=== PATIENT | male | born 1975 | race Caucasian/White ===

== ENCOUNTER 2017-04-05 14:40 | Emergency (ER) | payer OTHER ==
--- NOTE | 2017-04-05 15:08 | ED ---
Psych HPI - General Chief Complaint: Psychiatric Symptoms Stated Complaint: Mental Health Time Seen by Provider: 04/05/17 14:53 Source: patient, RN notes reviewed Mode of arrival: ambulatory - History of Present Illness Initial Comments: This is a 41-year-old male with a history depression who was brought in by police under petition for making suicidal threats. He states he got an argument with his parents this morning told his mother that he he wanted to hang himself that escalated after police arrived and he said I might as well kill myself though he didn't have any particular plan. He states this was a mistake and that he really doesn't want hurt himself but he is under petition at this time. He has a history of depression and prior admissions for inpatient treatment of the same. He is a recovered alcoholic he states he does not use alcohol now he does smoke cigarettes he denies any street drugs. MD Complaint: suicidal ideation, feels depressed - Related Data Home Medications Medication Instructions Recorded Confirmed Gabapentin [Gabapentin] 300 mg PO TID 06/21/16 04/05/17 Benztropine Mesylate [Cogentin] 2 mg PO TID 04/05/17 04/05/17 DULoxetine HCL [Cymbalta] 60 mg PO BID 04/05/17 04/05/17 diphenhydrAMINE [Benadryl] 50 mg PO HS 04/05/17 04/05/17 fluPHENAZine DECANOATE [Prolixin 25 mg IM FR 04/05/17 04/05/17 Decanoate] Allergies Allergy/AdvReac Type Severity Reaction Status Date / Time amoxicillin [Amoxicillin] Allergy Unknown Verified 04/05/17 14:54 cefdinir [From Omnicef] Allergy Unknown Verified 04/05/17 14:54 Iodine and Iodide Containing Allergy Unknown Verified 04/05/17 14:54 Produc propoxyphene napsylate Allergy Unknown Verified 04/05/17 14:54 [From Darvocet-N 100] Review of Systems ROS Statement: Those systems with pertinent positive or pertinent negative responses have been documented in the HPI. ROS Other: All systems not noted in ROS Statement are negative. Past Medical History Past Medical History: Fibromyalgia, Seizure Disorder Additional Past Medical History / Comment(s): closed head injury, degenerative disc disease History of Any Multi-Drug Resistant Organisms: MRSA Date of last positivie culture/infection: 07/27/2014 MDRO Source:: Left Hand Past Surgical History: Hernia Repair, Orthopedic Surgery Past Psychological History: ADD/ADHD, Anxiety, Bipolar, Depression, Panic Disorder, Schizophrenia Smoking Status: Current every day smoker Past Alcohol Use History: Occasional Past Drug Use History: None Reported General Exam - General Exam Comments Initial Comments: This is a well-developed well-nourished awake alert oriented 3 male Limitations: no limitations General appearance: alert, in no apparent distress Head exam: Present: atraumatic, normocephalic, normal inspection Eye exam: Present: normal appearance, PERRL, EOMI. Absent: scleral icterus, conjunctival injection, periorbital swelling ENT exam: Present: normal exam, mucous membranes moist Neck exam: Present: normal inspection. Absent: tenderness, meningismus, lymphadenopathy Respiratory exam: Present: normal lung sounds bilaterally. Absent: respiratory distress, wheezes, rales, rhonchi, stridor Cardiovascular Exam: Present: regular rate, normal rhythm, normal heart sounds. Absent: systolic murmur, diastolic murmur, rubs, gallop, clicks GI/Abdominal exam: Present: soft, normal bowel sounds. Absent: distended, tenderness, guarding, rebound, rigid Extremities exam: Present: normal inspection, full ROM, normal capillary refill. Absent: tenderness, pedal edema, joint swelling, calf tenderness Back exam: Present: normal inspection Neurological exam: Present: alert, oriented X3, CN II-XII intact Psychiatric exam: Present: depressed, flat affect Skin exam: Present: warm, dry, intact, normal color. Absent: rash Course Vital Signs 04/05/17 04/05/17 14:47 19:18 Temperature 98.2 F 97.9 F Pulse Rate 91 67 Respiratory 18 16 Rate Blood Pressure 138/74 117/76 O2 Sat by Pulse 99 99 Oximetry Medical Decision Making - Medical Decision Making The patient was evaluated by [facility] service he is not a threat to himself or a loss he denies any thoughts of suicide I did fill out a negative clinical certification. I did review the petition. - Lab Data Lab Results 04/05/17 Range/Units 16:24 Urine Opiates Screen Not Detected (NotDetected) Ur Oxycodone Screen Not Detected (NotDetected) Urine Methadone Screen Not Detected (NotDetected) Ur Propoxyphene Screen Not Detected (NotDetected) Ur Barbiturates Screen Not Detected (NotDetected) U Tricyclic Antidepress Not Detected (NotDetected) Ur Phencyclidine Scrn Not Detected (NotDetected) Ur Amphetamines Screen Not Detected (NotDetected) U Methamphetamines Scrn Not Detected (NotDetected) U Benzodiazepines Scrn Not Detected (NotDetected) Urine Cocaine Screen Not Detected (NotDetected) U Marijuana (THC) Screen Detected H (NotDetected) Disposition Clinical Impression: Adjustment reaction, Depression Disposition: HOME SELF-CARE Condition: Good Instructions: Depression (ED), Suicide Prevention for Adults (ED), Anxiety (ED)
[2017-04-05 19:19] VITALS: BP 117/76; PULSE 67; RESP 16; TEMP 97.9
== END 2017-04-05 19:35 | disposition home or self-care (01) ==
LOC: EC 14:40 → SUPCPDRO 14:40 → EC 19:35
DX: F43.20 Adjustment disorder, unspecified (principal); F32.9 Major depressive disorder, single episode, unspecified; G40.909 Epilepsy, unspecified, not intractable, without status epilepticus; F20.9 Schizophrenia, unspecified; F41.9 Anxiety disorder, unspecified; F90.9 Attention-deficit hyperactivity disorder, unspecified type; F41.0 Panic disorder [episodic paroxysmal anxiety]; F17.200 Nicotine dependence, unspecified, uncomplicated; Z79.899 Other long term (current) drug therapy; Z88.0 Allergy status to penicillin; Z88.5 Allergy status to narcotic agent; Z88.8 Allergy status to other drugs, medicaments and biological substances
CPT/HCPCS: 80306; 82075; 99284

== ENCOUNTER 2017-04-16 18:42 | Inpatient (IN) | payer MEDICAID, OTHER ==
--- NOTE | 2017-04-16 19:40 | ED ---
Psych HPI - General Chief Complaint: Psychiatric Symptoms Stated Complaint: Mental health Time Seen by Provider: 04/16/17 19:19 Source: patient, RN notes reviewed Mode of arrival: ambulatory Limitations: no limitations - History of Present Illness Initial Comments: 41-year-old male presents emergency Department with chief complaint of depression, suicidal thoughts. Patient states his ongoing suicidal thoughts has been evaluated for this. Patient was switched to Zyprexa and Prozac. Patient states he was on Cogentin and other medications. Patient states she's having having crying spells that aren't controlled. Patient has no exact plan to hurt himself. Denies any homicidal thoughts. Denies any drug abuse any alcohol abuse. Patient has no physical complaints. Patient is here with family. - Related Data Home Medications Medication Instructions Recorded Confirmed FLUoxetine HCL [PROzac] 10 mg PO DAILY 04/16/17 04/16/17 OLANZapine [ZyPREXA] 5 mg PO HS 04/16/17 04/16/17 Allergies Allergy/AdvReac Type Severity Reaction Status Date / Time cefdinir [From Omnicef] Allergy Unknown Verified 04/16/17 19:46 Iodine and Iodide Containing Allergy Unknown Verified 04/16/17 19:46 Produc Penicillins Allergy Unknown Verified 04/16/17 19:53 propoxyphene napsylate Allergy Unknown Verified 04/16/17 19:46 [From Darvocet-N 100] Review of Systems ROS Statement: Those systems with pertinent positive or pertinent negative responses have been documented in the HPI. ROS Other: All systems not noted in ROS Statement are negative. Past Medical History Past Medical History: Fibromyalgia, Seizure Disorder Additional Past Medical History / Comment(s): closed head injury, degenerative disc disease History of Any Multi-Drug Resistant Organisms: MRSA Date of last positivie culture/infection: 07/27/2014 MDRO Source:: Left Hand Past Surgical History: Hernia Repair, Orthopedic Surgery Past Psychological History: ADD/ADHD, Anxiety, Bipolar, Depression, Panic Disorder, Schizophrenia Smoking Status: Current some day smoker Past Alcohol Use History: Occasional Past Drug Use History: None Reported General Exam Limitations: no limitations General appearance: alert, in no apparent distress Head exam: Present: atraumatic, normocephalic, normal inspection ENT exam: Present: normal exam, normal oropharynx, mucous membranes moist Neck exam: Present: normal inspection. Absent: tenderness, meningismus, lymphadenopathy Respiratory exam: Present: normal lung sounds bilaterally. Absent: respiratory distress, wheezes, rales, rhonchi, stridor Cardiovascular Exam: Present: regular rate, normal rhythm, normal heart sounds. Absent: systolic murmur, diastolic murmur, rubs, gallop, clicks Neurological exam: Present: alert, oriented X3 Psychiatric exam: Present: flat affect Skin exam: Present: warm, dry, intact, normal color. Absent: rash Course Vital Signs 04/16/17 18:57 Temperature 99.0 F Pulse Rate 92 Respiratory 18 Rate Blood Pressure 123/82 O2 Sat by Pulse 94 L Oximetry Medical Decision Making - Lab Data Lab Results 04/16/17 Range/Units 19:26 Urine Opiates Screen Not Detected (NotDetected) Ur Oxycodone Screen Not Detected (NotDetected) Urine Methadone Screen Not Detected (NotDetected) Ur Propoxyphene Screen Not Detected (NotDetected) Ur Barbiturates Screen Not Detected (NotDetected) U Tricyclic Antidepress Not Detected (NotDetected) Ur Phencyclidine Scrn Not Detected (NotDetected) Ur Amphetamines Screen Not Detected (NotDetected) U Methamphetamines Scrn Not Detected (NotDetected) U Benzodiazepines Scrn Not Detected (NotDetected) Urine Cocaine Screen Not Detected (NotDetected) U Marijuana (THC) Screen Detected H (NotDetected) Disposition Clinical Impression: Suicidal ideation, Depression Disposition: ADMITTED IP TO THIS [facility] Condition: Stable Referrals: Sonu Grubbs MD [Primary Care Provider] - 1-2 days
[2017-04-16] MEDS ORDERED: MAGNESIUM HYDROXIDE 2,400 MG/10 ML CUP PO PRN (22:59)
[2017-04-16] MEDS ORDERED: MAG HYDROX/AL HYDROX/SIMETH 30 ML CUP PO PRN (22:59)
[2017-04-16] MEDS ORDERED: ACETAMINOPHEN TAB 325 MG TAB PO PRN (22:59)
[2017-04-16] MEDS ORDERED: ZIPRASIDONE 20 MG VIAL IM PRN (22:59)
[2017-04-16] MEDS: LORazepam 1 MG TAB PO PRN (23:37)
[2017-04-16] MEDS: OLANZapine 5 MG TAB PO SCH (23:37)
[2017-04-17 00:30] VITALS: BMI 20.7
[2017-04-17 09:23] LABS: Basophils # (A) 0.1 k/uL (0-0.2); Basophils % (A) 1 %; CH 32.7; CHCM 34.9; Eosinophils # (A) 0.2 k/uL (0-0.7); Eosinophils % (A) 2 %; HCT 51.7 % (39.0-53.0); HDW 2.37; HGB 17.3 gm/dL (13.0-17.5); Luc # (Auto) 0.16; Luc % (Auto) 2; Lymphocytes # (A) 2.3 k/uL (1.0-4.8); Lymphocytes % (A) 34 %; MCH 31.5 pg (25.0-35.0); MCHC 33.4 g/dL (31.0-37.0); MCV 94.1 fL (80.0-100.0); Mean Platelet Volume 7.8; Monocytes # (A) 0.3 k/uL (0-1.0); Monocytes % (A) 5 %; Neutrophils # (A) 3.8 k/uL (1.3-7.7); Neutrophils % (A) 56 %; WBC 6.8 k/uL (3.8-10.6); WBC (Perox) 6.76
[2017-04-17 09:36] LABS: ALT 28 U/L (21-72); AST 32 U/L (17-59); Alkaline Phosphatase 62 U/L (38-126); Anion Gap 13 mmol/L; Blood Urea Nitrogen 23 mg/dL (9-20); Calcium 9.7 mg/dL (8.4-10.2); Carbon Dioxide 25 mmol/L (22-30); Chloride 102 mmol/L (98-107); Glucose 141 mg/dL (74-99); Non-African American GFR(MDRD) >60 (>60 ml/min/1.73 sqM); Sodium 140 mmol/L (137-145)
[2017-04-17 09:41] LABS: Appearance,Urine Clear (Clear); Bilirubin,Urine Negative (Negative); Glucose,Urine (UA) Negative (Negative); Ketones,Urine Negative (Negative); Leukocyte Esterase,Urine Negative (Negative); Nitrite,Urine Negative (Negative); Protein,Urine Negative (Negative); Specific Gravity,Urine 1.016 (1.001-1.035); UA Billing (MACRO vs. MICRO) CHEM; Urobilinogen,Urine <2.0 mg/dL (<2.0)
[2017-04-17] MEDS: FLUoxetine HCL 10 MG CAP PO SCH (09:44)
[2017-04-17] MEDS: LORazepam 1 MG TAB PO PRN ×2 (09:45→20:58)
[2017-04-17 10:07] LABS: Potassium 4.9 mmol/L (3.5-5.1)
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
[2017-04-17] MEDS: OLANZapine 5 MG TAB PO SCH (20:58)
--- NOTE | 2017-04-18 05:23 | CONS ---
DATE OF CONSULTATION: CHIEF COMPLAINT: Major depression with suicidal thoughts. HISTORY OF PRESENT ILLNESS: This is another admission for this 41-year-old white male. He became extremely depressed and had been thinking about killing himself and he had actually had a plan to hang himself. REVIEW OF SYSTEMS: He has had no headaches, change in vision or the hearing, chest pain, cough, hemoptysis, abdominal pain, renal disease, etc. Past medical history, family history and personal and social histories reveal that he has been on Cymbalta 60 mg once a day, Fiorinal, Vicodin 5 q.4 p.r.n., Neurontin 400 mg once a day. The remainder of his history is unremarkable and can be found in his admitting summary. PHYSICAL EXAMINATION: Blood pressure is 128/74 with a pulse of 86, respirations 19. He is afebrile. GENERAL: He appeared to be well developed, well nourished and in no acute distress. Skin color is normal. Skin is warm and dry. Lymph nodes are not enlarged. Head, ears, eyes, nose, mouth, and throat were normal. Neck veins not distended. Chest is clear. Cardiac exam is normal. ABDOMEN: Soft, nontender. EXTREMITIES: Normal. NEUROLOGICAL: He is intact. IMPRESSION: Major depression with suicidal thought. RECOMMENDATION: None at this time.
[2017-04-18] MEDS: FLUoxetine HCL 10 MG CAP PO SCH (10:21)
--- NOTE | 2017-04-18 13:05 | P.PN ---
Progress Note - Text INTERVERAL HISTORY:Patient playing cards with another patient greeted consumer loan underwriter pleasantly and cooperatively. Came to office. Reports "maybe I didn't really need to come here, I feel better already"' Patient reports that he slept well last night, and it is feeling better today. Treatment team meeting focused on possibility that his precipitating factor was related to having to register due to CSC. Patient had mentioned that he could live with his parents as long as he behaved , he did not report that he had any behavior that would've gotten him in trouble. Reviewed with [facility] his recent medication changes. And he was taking fluphenazine IM and Cogentin, both of those were discontinued on Monday. MENTAL STATUS EXAM:Patient alert and oriented 3, good eye contact, fair groomed in street clothing. Speech normal volume, rate and production. Coherent, logical and goal directed thought process. No MICAELA, no FOI. [No TB/TW/ TI] Denied auditory and visual hallucinations. Denied paranoid ideation, delusions or IOR. Memory [fair] Cognition below average Mood neutral to euthymic, affect full range decreased intensity, congruent with mood. Denies suicidal ideation, denies homicidal ideation. Insight partial; Judgement grossly intact for treatment purposes PLAN: Continue inpatient admission for safety purposes. Will schedule family meeting prior to discharge. Continue zyprexa and prozac.
[2017-04-18] MEDS: OLANZapine 5 MG TAB PO SCH (20:42)
[2017-04-18] MEDS: LORazepam 1 MG TAB PO PRN (20:42)
[2017-04-19 06:46] VITALS: BP 96/61; PULSE 80; RESP 18; TEMP 97.7
[2017-04-19] MEDS: FLUoxetine HCL 10 MG CAP PO SCH (08:45)
--- NOTE | 2017-04-19 10:15 | P.DS ---
Providers Date of admission: 04/16/17 21:29 Expected date of discharge: 04/19/17 Attending physician: Vivien Bo MD Consults: 04/16/17 22:59 Consult Physician Routine Consulting Provider: Sonu Grubbs Consult Reason/Comments: H & P and medical follow up Do you want consulting provider notified?: Yes, Notify in am Primary care physician: Sonu Grubbs Hospital Course: Patient came to ER reporting suicidal ideation. He had just seen his outpatient psychiatrist but did not report his SI to him, stating "it was none of his business" Patient reported stress causing him to be suicidal, reporting he had attempted to hang himself 3 weeks prior to this admission. He was vague and unwilling to describe what the stressors were but during hospitalization he opened up and stated "if I the littlest thing I could be sent to long term" Patient eventually reported he has been taken to [facility] for not registering his address due to [facility] and the next time he would be taken to long term. He reports that his parents are willing to take him today to register so that he is in compliance with the law. Patient also reports his medication changes seem to be better. His last visit on Monday of last week, prolixin IM and cogentin were discontinued He is now taking prozac and zyprexa. Patient alert and oriented 3, good eye contact, fair groomed in hospital attire. Speech normal volume, rate and production. Coherent, logical and goal directed thought process. No MICAELA, no FOI. [No TB/TW/ TI] Denied auditory and visual hallucinations. Denied paranoid ideation, delusions or IOR. Memory [intact] Cognition[average] Mood euthymic, affect range, congruent with mood. Denies suicidal ideation, denies homicidal ideation. Insight partial; Judgment is intact for treatment purposes Suicidal ideation, with plan resolved Bipolar II Antisocial Personality Disorder Cannabis use, mild History of Head Trauma Pertinent Studies: none Procedures: none Patient Condition at Discharge: Stable Plan - Discharge Summary New Discharge Prescriptions: FLUoxetine HCL [PROzac] 10 mg PO DAILY #7 OLANZapine [ZyPREXA] 5 mg PO HS #7 Discharge Medication List FLUoxetine HCL [PROzac] 10 mg PO DAILY #7 04/19/17 [Rx] OLANZapine [ZyPREXA] 5 mg PO HS #7 04/19/17 [Rx] Follow up Appointment(s)/Referral(s): [facility] [Outside] - 04/20/17 (04/20/17 at 8:30 am w/ Peg Washington 05/02/17 at 4:40 pm w/ Dr. Jackson) Sonu Grubbs MD [Primary Care Provider] - 1-2 days Discharge Disposition: HOME SELF-CARE
== END 2017-04-19 12:05 | disposition home or self-care (01) | DRG 885 ==
LOC: EC 18:42 → 3MHU 21:29
PROVIDERS: ADMIT Psychiatry & Neurology Addiction Medicine; ATTEND Psychiatry & Neurology Addiction Medicine
DX: F31.81 Bipolar II disorder (principal); R45.851 Suicidal ideations; F41.0 Panic disorder [episodic paroxysmal anxiety]; F17.200 Nicotine dependence, unspecified, uncomplicated; F12.90 Cannabis use, unspecified, uncomplicated; F60.2 Antisocial personality disorder; F90.9 Attention-deficit hyperactivity disorder, unspecified type; Z87.820 Personal history of traumatic brain injury; M79.7 Fibromyalgia; Z59.0 Homelessness; Z79.899 Other long term (current) drug therapy; Z91.5 Personal history of self-harm
CPT/HCPCS: 80053; 80306; 81003; 84443; 85025; 99285

== ENCOUNTER → 2019-09-27 | Outpatient (CLI) | payer OTHER ==
[2019-09-27 17:13] LABS: Anti-DNA, DS unit <1.0 IU/mL; Anti-Smith Ab Interp NEGATIVE (NEGATIVE); Cyclic Citrull Pep IgG Unit 1.4 U/mL; Cyclic Citrullinated Pep IgG NEGATIVE (NEGATIVE); DNA Double-Stranded NEGATIVE (NEGATIVE); JO-1 IgG Antibody <0.2 AI; Scleroderma SC-70 Ab <0.2 AI
== END | disposition home or self-care (01) ==
LOC: LABWHC1 11:00
PROVIDERS: ATTEND Nurse Practitioner Family
DX: M25.50 Pain in unspecified joint (principal)
CPT/HCPCS: 36415; 83516; 86038; 86200; 86225; 86235

== ENCOUNTER → 2020-03-09 | Outpatient (CLI) | payer OTHER ==
--- NOTE | 2020-03-09 10:02 | CT ---
EXAMINATION TYPE: CT pelvis wo con DATE OF EXAM: 03/09/2020 COMPARISON: None HISTORY: umbilical pain CT DLP: 204.5 mGycm Automated exposure control for dose reduction was used. Unenhanced CT of the pelvis was performed. GI contrast was administered. FINDINGS: There is no evidence for inguinal or umbilical hernia. Gastrointestinal tract as visualized is of nor mal caliber. Granuloma of the spleen incidentally noted. No evidence for free fluid or abscess. IMPRESSION: NO EVIDENCE FOR HERNIA AT THIS TIME.
== END | disposition home or self-care (01) ==
LOC: RADCTMAIN 03-05 11:50
PROVIDERS: ATTEND Surgery
DX: K40.90 Unilateral inguinal hernia, without obstruction or gangrene, not specified as recurrent (principal)
CPT/HCPCS: 72192

== ENCOUNTER 2020-06-26 23:35 | Emergency (ER) | payer OTHER ==
[2020-06-26] MEDS ORDERED: SODIUM CHLORIDE 0.9% 1,000 ML IV STA (23:51)
[2020-06-26] MEDS ORDERED: PANTOPRAZOLE 40 MG/10 ML VIAL IVP STA (23:51)
[2020-06-26] MEDS ORDERED: MORPHINE SULFATE 4 MG/ML SYRINGE IV STA (23:51)
[2020-06-26] MEDS ORDERED: ONDANSETRON 4 MG/2 ML VIAL IVP STA (23:51)
--- NOTE | 2020-06-26 23:52 | ED ---
Abdominal Pain HPI - General Chief Complaint: Abdominal Pain Stated Complaint: Abdominal Pain, nausea Time Seen by Provider: 06/26/20 23:47 Source: patient, RN notes reviewed, old records reviewed Mode of arrival: ambulatory Limitations: no limitations - History of Present Illness Initial Comments: This is a 44-year-old male DF for evaluation patient presents today for evaluation regards to abdominal pain. More short. Pain right-sided abdominal pain. Nausea and vomiting decreased appetite diarrhea. No sick contacts no travel history patient has no significant medical history aside from neck pain in medications are related to his back pain. No significant surgical history. 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 Patient's pain has progressed throughout the day. No fevers MD Complaint: abdominal pain -: hour(s) Location: suprapubic Migration to: suprapubic Severity: moderate Severity scale (1-10): 5 Quality: cramping, stabbing Consistency: intermittent Improves With: nothing Associated Symptoms: nausea, vomiting, diarrhea Treatments Prior to Arrival: prescription analgesics - Related Data Previous Rx's Medication Instructions Recorded FLUoxetine HCL [PROzac] 10 mg PO DAILY #7 04/19/17 OLANZapine [ZyPREXA] 5 mg PO HS #7 04/19/17 Allergies Allergy/AdvReac Type Severity Reaction Status Date / Time benztropine [From Cogentin] Allergy Swelling Verified 06/26/20 23:41 cefdinir [From Omnicef] Allergy Unknown Verified 06/26/20 23:41 Iodine and Iodide Containing Allergy Unknown Verified 06/26/20 23:41 Produc Penicillins Allergy Unknown Verified 06/26/20 23:41 propoxyphene napsylate Allergy Unknown Verified 06/26/20 23:41 [From Darvocet-N 100] Review of Systems ROS Statement: Those systems with pertinent positive or pertinent negative responses have been documented in the HPI. ROS Other: All systems not noted in ROS Statement are negative. Past Medical History Past Medical History: Fibromyalgia, Seizure Disorder Additional Past Medical History / Comment(s): closed head injury, degenerative disc disease History of Any Multi-Drug Resistant Organisms: MRSA Date of last positivie culture/infection: 07/27/2014 MDRO Source:: Left Hand Past Surgical History: Hernia Repair, Orthopedic Surgery Past Psychological History: ADD/ADHD, Anxiety, Bipolar, Depression, Panic Disorder, Schizophrenia Smoking Status: Current every day smoker Past Alcohol Use History: Occasional Past Drug Use History: None Reported General Exam Limitations: no limitations General appearance: alert, in no apparent distress Head exam: Present: atraumatic, normocephalic, normal inspection Eye exam: Present: normal appearance, PERRL, EOMI. Absent: scleral icterus, conjunctival injection, periorbital swelling ENT exam: Present: normal exam, mucous membranes moist Neck exam: Present: normal inspection. Absent: tenderness, meningismus, lymphadenopathy Respiratory exam: Present: normal lung sounds bilaterally. Absent: respiratory distress, wheezes, rales, rhonchi, stridor Cardiovascular Exam: Present: regular rate, normal rhythm, normal heart sounds. Absent: systolic murmur, diastolic murmur, rubs, gallop, clicks GI/Abdominal exam: Present: soft, tenderness (Suprapubic), normal bowel sounds. Absent: distended, guarding, rebound, rigid Extremities exam: Present: normal inspection, full ROM, normal capillary refill. Absent: tenderness, pedal edema, joint swelling, calf tenderness Back exam: Present: normal inspection Neurological exam: Present: alert, oriented X3, CN II-XII intact Psychiatric exam: Present: normal affect, normal mood Skin exam: Present: warm, dry, intact, normal color. Absent: rash Course Vital Signs 06/26/20 06/27/20 06/27/20 23:37 01:19 02:18 Temperature 97.7 F 97.7 F 97.5 F L Pulse Rate 77 57 L 55 L Respiratory 18 16 14 Rate Blood Pressure 102/70 116/87 107/73 O2 Sat by Pulse 98 98 98 Oximetry - Reevaluation(s) Reevaluation #1: 06/27/20 00:46 Medical records reviewed Reevaluation #2: 06/27/20 00:46 Patient states he still in pain despite pain medication Reevaluation #3: 06/27/20 02:56 Symptoms improved Medical Decision Making - Medical Decision Making White female for evaluation of abdominal pain, no specific findings mild pancreatitis, patient tolerating oral intake now. CT negative labwork otherwise normal patient can be discharged home - Lab Data Result diagrams: 06/27/20 00:05 06/27/20 00:05 Lab Results 06/27/20 06/27/20 06/27/20 Range/Units 00:05 00:05 00:05 WBC 6.6 (3.8-10.6) k/uL RBC 5.28 (4.30-5.90) m/uL Hgb 16.6 (13.0-17.5) gm/dL Hct 49.9 (39.0-53.0) % MCV 94.5 (80.0-100.0) fL MCH 31.4 (25.0-35.0) pg MCHC 33.3 (31.0-37.0) g/dL RDW 12.8 (11.5-15.5) % Plt Count 170 (150-450) k/uL Neutrophils % 56 % Lymphocytes % 33 % Monocytes % 5 % Eosinophils % 3 % Basophils % 1 % Neutrophils # 3.7 (1.3-7.7) k/uL Lymphocytes # 2.2 (1.0-4.8) k/uL Monocytes # 0.3 (0-1.0) k/uL Eosinophils # 0.2 (0-0.7) k/uL Basophils # 0.1 (0-0.2) k/uL Sodium 139 (137-145) mmol/L Potassium 4.2 (3.5-5.1) mmol/L Chloride 106 (98-107) mmol/L Carbon Dioxide 25 (22-30) mmol/L Anion Gap 8 mmol/L BUN 20 (9-20) mg/dL Creatinine 0.87 (0.66-1.25) mg/dL Est GFR (CKD-EPI)AfAm >90 (>60 ml/min/1.73 sqM) Est GFR (CKD-EPI)NonAf >90 (>60 ml/min/1.73 sqM) Glucose 86 (74-99) mg/dL Plasma Lactic Acid Carlin (0.7-2.0) mmol/L Calcium 9.2 (8.4-10.2) mg/dL Total Bilirubin 0.6 (0.2-1.3) mg/dL AST 24 (17-59) U/L ALT 18 (4-49) U/L Alkaline Phosphatase 68 (38-126) U/L Creatine Kinase 78 (55-170) U/L Total Protein 7.3 (6.3-8.2) g/dL Albumin 4.8 (3.5-5.0) g/dL Amylase 85 (30-110) U/L Lipase 637 H (23-300) U/L Urine Color Yellow Urine Appearance Clear (Clear) Urine pH 5.5 (5.0-8.0) Ur Specific [place] 1.024 (1.001-1.035) Urine Protein Negative (Negative) Urine Glucose (UA) Negative (Negative) Urine Ketones Negative (Negative) Urine Blood Negative (Negative) Urine Nitrite Negative (Negative) Urine Bilirubin Negative (Negative) Urine Urobilinogen 2.0 (<2.0) mg/dL Ur Leukocyte Esterase Negative (Negative) 06/27/20 Range/Units 00:05 WBC (3.8-10.6) k/uL RBC (4.30-5.90) m/uL Hgb (13.0-17.5) gm/dL Hct (39.0-53.0) % MCV (80.0-100.0) fL MCH (25.0-35.0) pg MCHC (31.0-37.0) g/dL RDW (11.5-15.5) % Plt Count (150-450) k/uL Neutrophils % % Lymphocytes % % Monocytes % % Eosinophils % % Basophils % % Neutrophils # (1.3-7.7) k/uL Lymphocytes # (1.0-4.8) k/uL Monocytes # (0-1.0) k/uL Eosinophils # (0-0.7) k/uL Basophils # (0-0.2) k/uL Sodium (137-145) mmol/L Potassium (3.5-5.1) mmol/L Chloride (98-107) mmol/L Carbon Dioxide (22-30) mmol/L Anion Gap mmol/L BUN (9-20) mg/dL Creatinine (0.66-1.25) mg/dL Est GFR (CKD-EPI)AfAm (>60 ml/min/1.73 sqM) Est GFR (CKD-EPI)NonAf (>60 ml/min/1.73 sqM) Glucose (74-99) mg/dL Plasma Lactic Acid Carlin 1.2 (0.7-2.0) mmol/L Calcium (8.4-10.2) mg/dL Total Bilirubin (0.2-1.3) mg/dL AST (17-59) U/L ALT (4-49) U/L Alkaline Phosphatase (38-126) U/L Creatine Kinase (55-170) U/L Total Protein (6.3-8.2) g/dL Albumin (3.5-5.0) g/dL Amylase (30-110) U/L Lipase (23-300) U/L Urine Color Urine Appearance (Clear) Urine pH (5.0-8.0) Ur Specific [place] (1.001-1.035) Urine Protein (Negative) Urine Glucose (UA) (Negative) Urine Ketones (Negative) Urine Blood (Negative) Urine Nitrite (Negative) Urine Bilirubin (Negative) Urine Urobilinogen (<2.0) mg/dL Ur Leukocyte Esterase (Negative) - Radiology Data Radiology results: report reviewed (CT head and pelvis negative for acute disease), image reviewed Disposition Clinical Impression: Gastroenteritis Disposition: HOME SELF-CARE Condition: Good Instructions (If sedation given, give patient instructions): Gastroenteritis (ED) Is patient prescribed a controlled substance at d/c from ED?: No Referrals: Ruslan Montoya DO [Primary Care Provider] - 1-2 days
[2020-06-27 00:23] LABS: Appearance,Urine Clear (Clear); Bilirubin,Urine Negative (Negative); Blood,Urine Negative (Negative); Color,Urine Yellow; Glucose,Urine (UA) Negative (Negative); Ketones,Urine Negative (Negative); Leukocyte Esterase,Urine Negative (Negative); Nitrite,Urine Negative (Negative); PH, Urine 5.5 (5.0-8.0); Protein,Urine Negative (Negative); Specific Gravity,Urine 1.024 (1.001-1.035)
[2020-06-27 00:29] LABS: ALT 18 U/L (4-49); AST 24 U/L (17-59); African American GFR (CKD) >90 (>60 ml/min/1.73 sqM); Albumin 4.8 g/dL (3.5-5.0); Alkaline Phosphatase 68 U/L (38-126); Amylase 85 U/L (30-110); Anion Gap 8 mmol/L; Blood Urea Nitrogen 20 mg/dL (9-20); Calcium 9.2 mg/dL (8.4-10.2); Carbon Dioxide 25 mmol/L (22-30); Chloride 106 mmol/L (98-107); Creatine Kinase 78 U/L (55-170); Glucose 86 mg/dL (74-99); Non-African American GFR(CKD) >90 (>60 ml/min/1.73 sqM); Potassium 4.2 mmol/L (3.5-5.1); Sodium 139 mmol/L (137-145); Total Bilirubin 0.6 mg/dL (0.2-1.3); Total Protein 7.3 g/dL (6.3-8.2)
[2020-06-27 00:39] LABS: Basophils # (A) 0.1 k/uL (0-0.2); Basophils % (A) 1 %; Eosinophils # (A) 0.2 k/uL (0-0.7); Eosinophils % (A) 3 %; HCT 49.9 % (39.0-53.0); HGB 16.6 gm/dL (13.0-17.5); Lymphocytes # (A) 2.2 k/uL (1.0-4.8); Lymphocytes % (A) 33 %; MCH 31.4 pg (25.0-35.0); MCHC 33.3 g/dL (31.0-37.0); MCV 94.5 fL (80.0-100.0); Monocytes # (A) 0.3 k/uL (0-1.0); Monocytes % (A) 5 %; Neutrophils # (A) 3.7 k/uL (1.3-7.7); Neutrophils % (A) 56 %; Platelet Count 170 k/uL (150-450); RBC 5.28 m/uL (4.30-5.90); RDW 12.8 % (11.5-15.5); WBC 6.6 k/uL (3.8-10.6)
[2020-06-27] MEDS ORDERED: HYDROmorphone 1 MG/ML 1 ML SYRINGE IVP STA (00:44)
[2020-06-27] MEDS ORDERED: methylPREDNISolone SOD SUCCI 125 MG/2 ML VIAL IV STA (00:46)
[2020-06-27] MEDS ORDERED: diphenhydrAMINE 50 MG/ML 1 ML VIAL IVP STA (00:46)
[2020-06-27] MEDS ORDERED: FAMOTIDINE 20 MG/2 ML VIAL IV STA (00:46)
--- NOTE | 2020-06-27 01:48 | CT ---
EXAMINATION TYPE: CT abdomen pelvis w con DATE OF EXAM: 06/27/2020 COMPARISON: None HISTORY: pain CT DLP: 656 mGycm Automated exposure control for dose reduction was used. CONTRAST: Performed with IV Contrast, patient injected with 100 mL of Isovue 300. Images were obtained from the diaphragm to the floor the pelvis with IV contrast. Lung bases are clear. There is no pleural effusion. Heart size is normal. There is no pericardial eff usion. Liver spleen stomach pancreas gallbladder appear normal. Bile ducts are not dilated. There is no adrenal mass. Kidneys show satisfactory contrast opacification. There is no hydronephrosi s. Ureters are not dilated. There is no retroperitoneal adenopathy. Bladder distends smoothly. There is no inguinal hernia. There is no free fluid in the pelvis. There is no evidence of a pelvic mass. Appendix is not definitely seen. There is no evidence of thick ened appendix. There is no mesenteric edema. There is no ascites or free air. There is no sign of a b owel obstruction. Delayed images show normal renal excretion. There is some wall thickening and enlargement of the proximal jejunum. Jejunum measures up to 3 cm. Lumbar vertebra have normal spacing and alignment. Posterior elements are intact. There is no gem mariah fracture. Bony pelvis appears intact. Hip joints are intact. IMPRESSION: Appendix not seen. No sign of appendicitis. There is wall thickening of the proximal jejunum and mild enlargement. No transition point seen. This is more likely related to gastroenteritis.
[2020-06-27 02:19] VITALS: BP 107/73
[2020-06-27 03:18] VITALS: PULSE 79; RESP 18; TEMP 97.7
== END 2020-06-27 03:18 | disposition home or self-care (01) ==
LOC: EC 23:35
DX: K52.9 Noninfective gastroenteritis and colitis, unspecified (principal); F17.200 Nicotine dependence, unspecified, uncomplicated; Z88.8 Allergy status to other drugs, medicaments and biological substances; Z88.0 Allergy status to penicillin; Z91.048 Other nonmedicinal substance allergy status; Z88.1 Allergy status to other antibiotic agents
CPT/HCPCS: 36415; 80053; 82150; 82550; 83605; 83690; 85025; 81003; 74177; 99285; 96374; 96375 ×6; 96361; J2270; J1200; J2930; J2405; J1170; C9113; Q9967

== ENCOUNTER → 2020-09-22 | Outpatient (CLI) | payer OTHER | END | disposition home or self-care (01) | LOC: LABWHC1 12:52 | PROVIDERS: ATTEND Family Medicine | DX: R05 Cough (principal); R51.9 Headache, unspecified | CPT/HCPCS: U0003; C9803 ==

== ENCOUNTER 2020-09-23 12:17 | Emergency (ER) | payer OTHER ==
[2020-09-23 12:21] VITALS: RESP 18
[2020-09-23] MEDS ORDERED: diphenhydrAMINE 50 MG/ML 1 ML VIAL IVP STA (12:54)
[2020-09-23] MEDS ORDERED: FAMOTIDINE 20 MG/2 ML VIAL IV STA (12:54)
[2020-09-23] MEDS ORDERED: methylPREDNISolone SOD SUCCI 125 MG/2 ML VIAL IV STA (12:54)
--- NOTE | 2020-09-23 13:10 | ED ---
ENT HPI - General Chief complaint: ENT Stated complaint: Ear ache Time Seen by Provider: 09/23/20 12:20 Source: patient Mode of arrival: ambulatory Limitations: no limitations - History of Present Illness Initial comments: 44-year-old male presents to the emergency department with reported right ear pain. Patient states that he saw his primary care doctor yesterday for signs of an upper respiratory infection. She sent him to get Coban tested. He reports that they refused to treat him until the results were back. He states that last night he developed intense ear pain with radiation behind the ear and the patient's neck. The patient awoke from sleep to find blood on his pillow and blood dripping from his ear. He also admits to decreased hearing. Denies any headaches or fevers. No vision changes. Reports that his symptoms of upper respiratory infection to include nasal drainage and sore throat have improved. Denies cough shortness of breath. Review the patient's chart reveals negative covid test from yesterday. There alleviating, precipitating or modifying factors - Related Data Previous Rx's Medication Instructions Recorded FLUoxetine HCL [PROzac] 10 mg PO DAILY #7 04/19/17 OLANZapine [ZyPREXA] 5 mg PO HS #7 04/19/17 Ofloxacin 0.3% Otic Soln [Floxin 10 drops RIGHT EAR TID #1 bottle 09/23/20 0.3% Otic Soln] clindamycin HCL [Cleocin] 300 mg PO Q8H #21 cap 09/23/20 Allergies Allergy/AdvReac Type Severity Reaction Status Date / Time benztropine [From Cogentin] Allergy Swelling Verified 09/23/20 12:21 cefdinir [From Omnicef] Allergy Unknown Verified 09/23/20 12:21 Iodine and Iodide Containing Allergy Unknown Verified 09/23/20 12:21 Produc Penicillins Allergy Unknown Verified 09/23/20 12:21 propoxyphene napsylate Allergy Unknown Verified 09/23/20 12:21 [From Darvocet-N 100] Review of Systems ROS Statement: Those systems with pertinent positive or pertinent negative responses have been documented in the HPI. ROS Other: All systems not noted in ROS Statement are negative. Past Medical History Past Medical History: Fibromyalgia, Seizure Disorder Additional Past Medical History / Comment(s): closed head injury, degenerative disc disease History of Any Multi-Drug Resistant Organisms: MRSA Date of last positivie culture/infection: 07/27/2014 MDRO Source:: Left Hand Past Surgical History: Hernia Repair, Orthopedic Surgery Past Psychological History: ADD/ADHD, Anxiety, Bipolar, Depression, Panic Disorder, Schizophrenia Smoking Status: Current every day smoker Past Alcohol Use History: Occasional Past Drug Use History: None Reported General Exam Limitations: no limitations Course Vital Signs 09/23/20 09/23/20 12:18 15:30 Temperature 97.6 F 98.1 F Pulse Rate 62 64 Respiratory 18 18 Rate Blood Pressure 110/74 103/77 O2 Sat by Pulse 100 99 Oximetry Medical Decision Making - Medical Decision Making Upon arrival patient is placed into room 10. Thorough history and physical exam was performed. Evaluation of the patient's right ear does reveal blood within the canal. The tympanic membrane is red and bulging. The patient does have mastoid process tenderness. PIV is inserted. Patient was given a dose of Rocephin. Patient is pretreated for CT. He denies having a contrast ALLERGY but reports that his parents always told him he had one. Laboratory studies are unremarkable. The results of the CT are discussed with Dr. Lopez. Dr. Sorto does commend oral antibiotics and otic eardrops. Prescription was sent to the pharmacy. Patient is to call and make an appointment with him to raven sweet in office. If he has any new or worsening symptoms return to the emergency room. The patient agreed to this. He is discharged home in stable condition - Lab Data Result diagrams: 09/23/20 13:06 09/23/20 13:06 Lab Results 09/23/20 09/23/20 Range/Units 13:06 13:06 WBC 5.8 (3.8-10.6) k/uL RBC 5.02 (4.30-5.90) m/uL Hgb 15.9 (13.0-17.5) gm/dL Hct 47.8 (39.0-53.0) % MCV 95.1 (80.0-100.0) fL MCH 31.7 (25.0-35.0) pg MCHC 33.4 (31.0-37.0) g/dL RDW 12.9 (11.5-15.5) % Plt Count 150 (150-450) k/uL Neutrophils % 64 % Lymphocytes % 24 % Monocytes % 5 % Eosinophils % 3 % Basophils % 1 % Neutrophils # 3.7 (1.3-7.7) k/uL Lymphocytes # 1.4 (1.0-4.8) k/uL Monocytes # 0.3 (0-1.0) k/uL Eosinophils # 0.2 (0-0.7) k/uL Basophils # 0.1 (0-0.2) k/uL Sodium 138 (137-145) mmol/L Potassium 4.7 (3.5-5.1) mmol/L Chloride 105 (98-107) mmol/L Carbon Dioxide 26 (22-30) mmol/L Anion Gap 7 mmol/L BUN 16 (9-20) mg/dL Creatinine 0.97 (0.66-1.25) mg/dL Est GFR (CKD-EPI)AfAm >90 (>60 ml/min/1.73 sqM) Est GFR (CKD-EPI)NonAf >90 (>60 ml/min/1.73 sqM) Glucose 101 H (74-99) mg/dL Calcium 9.1 (8.4-10.2) mg/dL Total Bilirubin 0.8 (0.2-1.3) mg/dL AST 33 (17-59) U/L ALT 38 (4-49) U/L Alkaline Phosphatase 63 (38-126) U/L Total Protein 7.3 (6.3-8.2) g/dL Albumin 4.5 (3.5-5.0) g/dL Disposition Clinical Impression: Otitis media Disposition: HOME SELF-CARE Condition: Stable Instructions (If sedation given, give patient instructions): Ear Infection (ED) Additional Instructions: Please follow-up with Dr. Lopez in 2-4 days. Call today to make an appointment. Return to the emergency room for any new or worsening symptoms Prescriptions: clindamycin HCL [Cleocin] 300 mg PO Q8H #21 cap Ofloxacin 0.3% Otic Soln [Floxin 0.3% Otic Soln] 10 drops RIGHT EAR TID #1 bottle Is patient prescribed a controlled substance at d/c from ED?: No Referrals: Ruslan Montoya DO [Primary Care Provider] - 1-2 days Lavell Lopez MD [STAFF PHYSICIAN] - 1-2 days Time of Disposition: 15:12
[2020-09-23 13:20] LABS: Basophils # (A) 0.1 k/uL (0-0.2); Basophils % (A) 1 %; Eosinophils # (A) 0.2 k/uL (0-0.7); Eosinophils % (A) 3 %; HCT 47.8 % (39.0-53.0); HGB 15.9 gm/dL (13.0-17.5); Lymphocytes # (A) 1.4 k/uL (1.0-4.8); Lymphocytes % (A) 24 %; MCH 31.7 pg (25.0-35.0); MCHC 33.4 g/dL (31.0-37.0); MCV 95.1 fL (80.0-100.0); Mean Platelet Volume 7.7; Monocytes # (A) 0.3 k/uL (0-1.0); Monocytes % (A) 5 %; Neutrophils # (A) 3.7 k/uL (1.3-7.7); Neutrophils % (A) 64 %; Platelet Count 150 k/uL (150-450); RBC 5.02 m/uL (4.30-5.90); RDW 12.9 % (11.5-15.5); WBC 5.8 k/uL (3.8-10.6)
[2020-09-23 13:27] LABS: ALT 38 U/L (4-49); AST 33 U/L (17-59); African American GFR (CKD) >90 (>60 ml/min/1.73 sqM); Albumin 4.5 g/dL (3.5-5.0); Alkaline Phosphatase 63 U/L (38-126); Anion Gap 7 mmol/L; Blood Urea Nitrogen 16 mg/dL (9-20); Calcium 9.1 mg/dL (8.4-10.2); Carbon Dioxide 26 mmol/L (22-30); Chloride 105 mmol/L (98-107); Glucose 101 mg/dL (74-99); Non-African American GFR(CKD) >90 (>60 ml/min/1.73 sqM); Potassium 4.7 mmol/L (3.5-5.1); Sodium 138 mmol/L (137-145); Total Bilirubin 0.8 mg/dL (0.2-1.3); Total Protein 7.3 g/dL (6.3-8.2)
--- NOTE | 2020-09-23 14:55 | CT ---
EXAMINATION TYPE: CT iac w con DATE OF EXAM: 09/23/2020 HISTORY: Right sided ear pain with headache and bleeding from ear today COMPARISON: CT brain January 13, 2014 CT DLP: 212 mGycm. Automated Exposure Control for Dose Reduction was Utilized. TECHNIQUE: CT scan of the internal auditory canals are performed with IV Contrast, patient injected with 100 mL of Isovue 300, axial images are obtained, coronal and sagittal reformatted images are rev iewed. FINDINGS: The external auditory canals are patent bilaterally. Mastoid air cells show some opacifica tion bilaterally actually more prominent on the left versus right side. The middle ear ossicles are symmetric and felt Within normal limits. There is some soft tissue densi ty inferior right aspect of the middle ear ossicles coronal image 71. The scutum is preserved bilate rally. Middle ear spread of infection needs to be considered with surrounding soft tissue axial image 24 towards the petrous apex noted. The cochlea and the semicircular canals are symmetric and unremarkable. Vestibular aqueduct and int ernal carotid canal appear unremarkable. Temporomandibular joints are maintained bilaterally. [id number] mucosal thickening involving th e ethmoid and sphenoid sinuses along with left frontal sinus bilaterally on current study there is ne w from 2014 CT. No suspicious postcontrast enhancement is seen. IMPRESSION: Bilateral left greater than right mastoiditis. Middle ear infection spread on the right s jose is present. No scutum destruction to suggest cholesteatoma.
[2020-09-23 15:31] VITALS: BP 103/77; PULSE 64; TEMP 98.1
== END 2020-09-23 15:31 | disposition home or self-care (01) ==
LOC: EC 12:17
DX: H66.91 Otitis media, unspecified, right ear (principal); F17.200 Nicotine dependence, unspecified, uncomplicated; Z88.0 Allergy status to penicillin; Z88.1 Allergy status to other antibiotic agents; Z88.8 Allergy status to other drugs, medicaments and biological substances; Z91.041 Radiographic dye allergy status
CPT/HCPCS: 36415; 80053; 85025; 70481; 99283; 96365; 96366; 96375 ×3; J1200; J2930; J0696; Q9967

== ENCOUNTER 2021-06-10 00:07 | Emergency (ER) | payer OTHER ==
[2021-06-10 00:14] VITALS: TEMP 97.9
[2021-06-10 01:30] VITALS: BP 113/81; PULSE 78; RESP 18
[2021-06-10] MEDS ORDERED: CYCLOBENZAPRINE 10MG STARTER 3 TAB BTL PO STA (01:48)
[2021-06-10] MEDS ORDERED: MORPHINE SULFATE 4 MG/ML SYRINGE IM STA (01:48)
[2021-06-10] MEDS ORDERED: KETOROLAC 15 MG/ML 1 ML VIAL IM STA (01:48)
--- NOTE | 2021-06-10 01:50 | ED ---
Back Pain HPI - General Chief Complaint: Back Pain/Injury Stated Complaint: Back Injury Time Seen by Provider: 06/10/21 01:18 Source: patient Limitations: no limitations - History of Present Illness Initial Comments: 45 year-old male patient presents to the emergency department for evaluation of increase in his back pain. Patient states that he has a bulging disc in his thoracic spine. States he started a new job about a month ago and he has been working 12 hour shifts. Patient states that over the last few days his back pain has worsened. State she has pain and soreness down both legs and into his feet. He denies any abdominal pain, fever, or chills. Denies history of IV drug use. Denies any falls or injuries. States his back pain is similar to his previous episodes. States he does take hydrocodone and ibuprofen for pain and doesn't seem to be helping. Patient denies any recent rash, cough, shortness of breath, chest pain, nausea, vomiting, diarrhea, constipation, dizziness, weakness, hematuria, dysuria, urinary urgency, urinary frequency, headache, visual changes, or any other complaints. - Related Data Previous Rx's Medication Instructions Recorded FLUoxetine HCL [PROzac] 10 mg PO DAILY #7 04/19/17 OLANZapine [ZyPREXA] 5 mg PO HS #7 04/19/17 Ofloxacin 0.3% Otic Soln [Floxin 10 drops RIGHT EAR TID #1 bottle 09/23/20 0.3% Otic Soln] clindamycin HCL [Cleocin] 300 mg PO Q8H #21 cap 09/23/20 Cyclobenzaprine [Flexeril] 10 mg PO TID #15 tab 06/10/21 Allergies Allergy/AdvReac Type Severity Reaction Status Date / Time benztropine [From Cogentin] Allergy Swelling Verified 06/10/21 00:14 cefdinir [From Omnicef] Allergy Unknown Verified 06/10/21 00:14 Iodine and Iodide Containing Allergy Unknown Verified 06/10/21 00:14 Produc Penicillins Allergy Unknown Verified 06/10/21 00:14 propoxyphene napsylate Allergy Unknown Verified 06/10/21 00:14 [From Nycet-N 100] Review of Systems ROS Statement: Those systems with pertinent positive or pertinent negative responses have been documented in the HPI. ROS Other: All systems not noted in ROS Statement are negative. Past Medical History Past Medical History: Fibromyalgia, Seizure Disorder Additional Past Medical History / Comment(s): closed head injury, degenerative disc disease History of Any Multi-Drug Resistant Organisms: MRSA Date of last positivie culture/infection: 07/27/2014 MDRO Source:: Left Hand Past Surgical History: Hernia Repair, Orthopedic Surgery Past Psychological History: ADD/ADHD, Anxiety, Bipolar, Depression, Panic Disorder, Schizophrenia Smoking Status: Current every day smoker Past Alcohol Use History: Occasional Past Drug Use History: None Reported General Exam Limitations: no limitations General appearance: alert, in no apparent distress, other (Physical well- developed, well-nourished adult male patient in no acute distress. Vital signs upon presentation temperature 97.9F, pulse 92, respirations 20, blood pressure 116/77, pulse ox 98% on room air.) Eye exam: Present: normal appearance, PERRL, EOMI. Absent: scleral icterus, conjunctival injection, periorbital swelling ENT exam: Present: normal exam, normal oropharynx, mucous membranes moist Respiratory exam: Present: normal lung sounds bilaterally. Absent: respiratory distress, wheezes, rales, rhonchi, stridor Cardiovascular Exam: Present: regular rate, normal rhythm, normal heart sounds. Absent: systolic murmur, diastolic murmur, rubs, gallop, clicks GI/Abdominal exam: Present: soft, normal bowel sounds. Absent: distended, tenderness, guarding, rebound, rigid Back exam: Present: normal inspection. Absent: vertebral tenderness Neurological exam: Present: alert, oriented X3, CN II-XII intact Psychiatric exam: Present: normal affect, normal mood Skin exam: Present: warm, dry, intact, normal color. Absent: rash Course Vital Signs 06/10/21 06/10/21 00:10 01:23 Temperature 97.9 F 97.9 F Pulse Rate 92 78 Respiratory 20 18 Rate Blood Pressure 116/77 113/81 O2 Sat by Pulse 98 98 Oximetry Medical Decision Making - Medical Decision Making 45-year-old male patient presented for evaluation of exacerbation of his chronic back pain. States he has history of bulging disc. Physical examination is unremarkable. Abdomen soft and nontender. He is afebrile normal vital signs. He will be given IM doses of pain medication and oral muscle relaxers here. To be discharged follow-up with his primary care physician or sign painter as soon as possible. Return parameters were discussed in detail. He verbalizes understanding and agrees with this plan. My attending is Dr. Caraballo. Disposition Clinical Impression: Back pain Disposition: HOME SELF-CARE Condition: Good Instructions (If sedation given, give patient instructions): Back Pain (ED) Additional Instructions: Take home medications as directed. Follow-up with your sign painter as soon as possible. Return for any new, worsening, or concerning symptoms. Prescriptions: Cyclobenzaprine [Flexeril] 10 mg PO TID #15 tab Is patient prescribed a controlled substance at d/c from ED?: No Referrals: Ruslan Montoya DO [Primary Care Provider] - 1-2 days Time of Disposition: 01:49
== END 2021-06-10 02:09 | disposition home or self-care (01) ==
LOC: EC 00:07
DX: M54.5 Low back pain (principal); G40.909 Epilepsy, unspecified, not intractable, without status epilepticus; M79.7 Fibromyalgia; F31.9 Bipolar disorder, unspecified; F20.9 Schizophrenia, unspecified; F41.9 Anxiety disorder, unspecified; F17.200 Nicotine dependence, unspecified, uncomplicated; Z79.899 Other long term (current) drug therapy; Z88.0 Allergy status to penicillin; Z88.8 Allergy status to other drugs, medicaments and biological substances
CPT/HCPCS: 96372 ×2; 99283; J2270; J1885